=== PATIENT | male | born 1980 | race Hispanic/Latino ===

== ENCOUNTER 2025-02-26 14:49 | Emergency (ER) | payer OTHER ==
[2025-02-26] MEDS ORDERED: Aspirin 81 mg Enteric Coated Tablet ONE (15:21)
[2025-02-26] MEDS ORDERED: Lidocaine Viscous Sol 2% 15 ml UD Cup ONE (15:21)
[2025-02-26] MEDS ORDERED: Mag-Al 1200 mg/1200 mg/30 ML UDCUP ONE (15:21)
[2025-02-26] MEDS ORDERED: Famotidine/PF 20 mg/2ml Vial ONE (15:22)
[2025-02-26] MEDS ORDERED: Aspirin Chewable 81 MG TAB ONE (15:28)
[2025-02-26 15:33] LABS: #Basophils 0.03 10x3/uL (0.0-0.2); #Eosinophils 0.30 10x3/uL (0.0-0.5); #Monocytes 0.43 10x3/uL (0.0-1.1); #Neutrophils 3.80 10x3/uL (1.5-8.4); %Basophils 0.5 % (0.0-2.0); %Eosinophils 5.0 % (0.0-6.0); %Lymphocytes 23.0 % (18.0-47.0); %Monocytes 7.2 % (0.0-10.0); %Neutrophils 64.0 % (40.0-75.0); Hematocrit 46.0 % (38.8-50.0); Hemoglobin 15.6 g/dL (13.5-17.5); Mean Corpuscular Hemoglobin 29.4 pg (27.0-33.0); Mean Corpuscular Volume 86.8 fL (81.2-95.1); Platelet Count 333 10x3/uL (150-450); Red Blood Cell (RBC) Count 5.30 10x6/uL (4.32-5.72); White Blood Cell (WBC) Count 5.95 10x3/uL (3.5-10.5)
[2025-02-26 15:44] LABS: ALT (SGPT) 20 U/L (Less than 45); AST (SGOT) 21 U/L (11-34); Albumin 3.8 g/dL (3.1-4.5); Alkaline Phosphatase 62 U/L (40-110); BUN (Urea Nitrogen) 14 mg/dL (8.9-20.6); Bilirubin, Total 0.3 mg/dL (0.3-1.2); Calc. Creatinine Clearance 0 mL/min (70-130); Calcium 8.6 mg/dL (7.8-10.44); Carbon Dioxide 25 mmol/L (22-29); Globulin 2.7 g/dL (2.4-3.5); Glucose 109 mg/dL (70-105); Lipase 33 U/L (8-78)
[2025-02-26 15:50] LABS: Troponin I Less than 0.010 ng/mL (< 0.028)
[2025-02-26 15:52] LABS: Anion Gap 13 mmol/L (10-20); Chloride 108 mmol/L (98-107); Potassium 4.0 mmol/L (3.5-5.1); Sodium 142 mmol/L (136-145)
== END 2025-02-26 16:28 | disposition home or self-care (01) ==
LOC: CSHERS 14:49
DX: R07.2 Precordial pain (principal); F17.210 Nicotine dependence, cigarettes, uncomplicated
CPT/HCPCS: 71045; 80053; 83690; 84484; 85025; 93005; 94760; 96361; 96374; J1308